=== PATIENT | male | born 1960 | race Caucasian/White ===

== ENCOUNTER 2021-04-07 10:41 | Inpatient (IN) ==
[2021-04-07] MEDS ORDERED: Aspirin 81 MG TAB.CHEW PO ONE (11:23)
[2021-04-07 11:57] LABS: Basophils # 0.1 K/mcL (0.0-0.2); Basophils % 0.7 %; Eosinophils # 0.1 K/mcL (0.0-0.6); Hematocrit 43.5 % (37.5-50.1); Hemoglobin 15.2 g/dL (12.9-16.9); Immature Granulocytes % 0.6 % (0-4); Lymphocytes # 2.2 K/mcL (0.6-4.6); Lymphocytes % 31.4 %; Mean Corpuscular HGB Conc 34.9 g/dL (31.6-35.5); Mean Corpuscular Hemoglobin 32.5 pg (28.0-33.3); Mean Corpuscular Volume 92.9 fL (83.0-100.0); Mean Platelet Volume 10.1 fL (9.4-12.4); Monocytes # 0.6 K/mcL (0.0-1.3); Monocytes % 7.9 %; Neutrophils # 4.2 K/mcL (1.6-8.9); Platelet Count 275 K/mcL (140-400); Red Blood Count 4.68 M/mcL (4.19-5.50); Segmented Neutrophils % 58.4 %; White Blood Count 7.1 K/mcL (4.3-11.1)
[2021-04-07 12:22] LABS: Alanine Aminotransferase 17 Units/L (7-52); Albumin 4.4 g/dL (3.5-5.7); Albumin/Globulin Ratio 1.5 (1.1-2.2); Alkaline Phosphatase 56 Units/L (34-104); Aspartate Amino Transferase 17 Units/L (13-39); BUN/Creatinine Ratio 15 (6-26); Bilirubin,Direct 0.2 mg/dL (0.0-0.2); Bilirubin,Indirect 0.7 mg/dL (0.0-1.0); Bilirubin,Total 0.9 mg/dL (0.3-1.0); Blood Urea Nitrogen 12 mg/dL (8-23); Calcium 9.4 mg/dL (8.6-10.3); Carbon Dioxide 28 mEq/L (23-29); Chloride 104 mEq/L (98-107); Glucose 96 mg/dL (70-105); Osmolality,Calculated 284 (280-300); Potassium 3.8 mEq/L (3.5-5.1); Sodium 137 mEq/L (136-145); Total Protein 7.4 g/dL (6.4-8.9); Troponin I < 0.03 ng/mL (< 0.04); eGFR For African Americans > 60 (> 60); eGFR For Non-African Americans > 60 (> 60)
[2021-04-07] MEDS ORDERED: Naloxone 0.4 MG/ML INJ IVP PRN (14:43)
[2021-04-07] MEDS ORDERED: Perflutren Lipid Microsphere 1.3 ML in 0.9 % Sodium Chloride 8.7 ML IVP PRN (15:40)
[2021-04-07 16:18] LABS: Cholesterol 227 mg/dL (< 200); HDL Cholesterol 38 mg/dL (40-59); LDL Cholesterol,Calculated 159 mg/dL (< 100); Triglycerides 148 mg/dL (< 150)
[2021-04-07 16:50] LABS: Estimated Average Glucose 103 mg/dl; Hemoglobin A1C 5.2 %
[2021-04-07] MEDS ORDERED: Isovue-370 500 ML BOTTLE IVP ONE (19:47)
[2021-04-08 03:04] LABS: INR 1.1; Prothrombin Time 11.8 Seconds (9.4-12.1)
[2021-04-08] MEDS ORDERED: *HR* Enoxaparin 40 MG/0.4 ML SYRINGE SQ SCH (06:00)
[2021-04-08] MEDS: Aspirin 81 MG TAB.CHEW PO SCH (08:20)
[2021-04-08] MEDS ORDERED: *HR* Heparin 5,000 UNIT/ML VIAL IVP PRN ×2 (09:15)
[2021-04-08 09:48] LABS: Hematocrit 43.5 % (37.5-50.1); Hemoglobin 15.5 g/dL (12.9-16.9); Mean Corpuscular HGB Conc 35.6 g/dL (31.6-35.5); Mean Corpuscular Hemoglobin 32.4 pg (28.0-33.3); Mean Platelet Volume 10.2 fL (9.4-12.4); Platelet Count 289 K/mcL (140-400); Red Blood Count 4.78 M/mcL (4.19-5.50); White Blood Count 7.2 K/mcL (4.3-11.1)
[2021-04-08 09:55] LABS: Heparin anti-factor XA UFH 0.3 IU/mL (0.30-0.70)
[2021-04-08 09:56] LABS: Prothrombin Time 11.4 Seconds (9.4-12.1)
[2021-04-08] MEDS: Heparin 25,000UNIT/250ML 1/2NS 25,000 UNIT/250 ML IV.SOLN IVC SCH (10:50)
[2021-04-08] MEDS ORDERED: *HR* Rivaroxaban 10 MG TABLET PO SCH (17:00)
[2021-04-08] MEDS ORDERED: *HR* Acetaminophen w/Cod 300-30 mg 1 TAB TABLET PO PRN (19:08)
[2021-04-09] MEDS: Aspirin 81 MG TAB.CHEW PO SCH (08:22)
[2021-04-09 10:36] VITALS: O2SAT 95
[2021-04-09] MEDS: Heparin 25,000UNIT/250ML 1/2NS 25,000 UNIT/250 ML IV.SOLN IVC SCH (12:30)
[2021-04-09 15:27] VITALS: BP 113/79; PULSE 65; TEMP 97.5
== END 2021-04-09 18:10 | disposition home or self-care (01) | DRG 45 ==
LOC: 3BNU 10:41 → EMEROOARM 10:41 → SUATTDRO 17:56 → 3BNU 18:40
PROVIDERS: ADMIT Family Medicine; ATTEND Internal Medicine

== ENCOUNTER 2021-04-17 10:56 | Inpatient (IN) ==
[2021-04-17] MEDS ORDERED: CeFAZolin Syr 2,000MG/20 ML 2,000 MG/20 ML SYRINGE IVPB ONE (11:30)
[2021-04-17] MEDS ORDERED: Vancomycin 1,250 MG/262.5 ML IV.SOLN IVPB ONE (11:30)
[2021-04-17] MEDS ORDERED: Ringers Solution, Lactated 1,000 ML IVC SCH (11:30)
[2021-04-17] MEDS ORDERED: *HR* OxyCODONE Immed Rel 5 MG TABLET PO PRN ×2 (11:54→23:03)
[2021-04-17] MEDS ORDERED: Famotidine 20 MG/2 ML VIAL IVP ONE (11:54)
[2021-04-17] MEDS ORDERED: Acetaminophen IV 1,000 MG/100 ML BAG IVPB ONE (11:54)
[2021-04-17] MEDS ORDERED: Ondansetron 4 MG/2 ML VIAL IVP PRN ×2 (11:54→23:03)
[2021-04-17] MEDS ORDERED: Albuterol 2.5 MG/3 ML NEBULIZER IH PRN (11:54)
[2021-04-17] MEDS ORDERED: *HR* FentaNYL (PF) 100 MCG/2 ML VIAL ONE (11:57)
[2021-04-17] MEDS ORDERED: Lidocaine -MPF 2% 5 ML VIAL ONE ×2 (11:57→12:26)
[2021-04-17] MEDS ORDERED: Ondansetron 4 MG/2 ML VIAL ONE ×2 (11:57→12:00)
[2021-04-17] MEDS ORDERED: *HR* Propofol 200 MG/20 ML VIAL IVP ONE (11:57)
[2021-04-17] MEDS ORDERED: *HR* Rocuronium Bromide 50 MG/5 ML VIAL ONE (11:57)
[2021-04-17] MEDS ORDERED: *HR* Succinylcholine 200 MG/10 ML VIAL IVP ONE (11:57)
[2021-04-17] MEDS ORDERED: Lidocaine HCL 4 ML Topical Solution (Laryng-O-Jet Kit Sterile Pak) TP ONE (11:57)
[2021-04-17] MEDS ORDERED: *HR* Midazolam HCl 2 MG/2 ML VIAL ONE (11:57)
[2021-04-17] MEDS ORDERED: *HR* Remifentanil 2 MG VIAL IVP ONE (12:02)
[2021-04-17] MEDS ORDERED: Vancomycin 1,000 MG, Sodium Chloride IRRigation 1,000 ML IR ONE (12:45)
[2021-04-17] MEDS ORDERED: *HR* Heparin 5,000 UNIT/ML VIAL ONE (13:27)
[2021-04-17] MEDS ORDERED: EPHEDrine 50 MG/ML VIAL ONE (13:33)
[2021-04-17] MEDS ORDERED: Sugammadex Sodium 200 MG/2 ML VIAL IV ONE (14:33)
[2021-04-17] MEDS ORDERED: Heparin 1,000 UNITS/500 mL 1,000 ML ONE (15:17)
[2021-04-17] MEDS ORDERED: Bupivacaine-MPF 0.25% 10 ML VIAL ONE (15:17)
[2021-04-17] MEDS: *HR* FentaNYL (PF) 100 MCG/2 ML VIAL IVP PRN ×2 (15:57→19:37)
[2021-04-17] MEDS ORDERED: CeFAZolin 2,000 MG/120 ML BAG IVPB ONE (20:21)
[2021-04-17] MEDS ORDERED: 0.9 % Sodium Chloride 1,000 ML IVC SCH (23:03)
[2021-04-17] MEDS ORDERED: Acetaminophen 325 MG TABLET PO PRN (23:03)
[2021-04-17] MEDS ORDERED: Naloxone 0.4 MG/ML INJ IVP PRN (23:03)
[2021-04-17] MEDS ORDERED: *HR* HYDROcodone/Acet 5/325 mg TABLET PO PRN (23:03)
[2021-04-17] MEDS ORDERED: *HR* Labetalol 20 MG/4 ML SYRINGE IVP PRN (23:03)
[2021-04-17] MEDS: *HR* Metoprolol 5 MG/5 ML VIAL IVP SCH (23:43)
[2021-04-18] MEDS ORDERED: Vancomycin 1,250 MG/262.5 ML IV.SOLN IVPB ONE (01:00)
[2021-04-18] MEDS ORDERED: CeFAZolin 2 GM/120 ML BAG IVPB SCH (03:00)
[2021-04-18] MEDS: *HR* Metoprolol 5 MG/5 ML VIAL IVP SCH (04:43)
[2021-04-18] MEDS ORDERED: *HR* Heparin 5,000 UNIT/ML VIAL SQ SCH (06:00)
[2021-04-18] MEDS ORDERED: Aspirin Enteric Coated 81 MG Tablet PO SCH (09:00)
[2021-04-18 14:24] VITALS: BP 118/69; PULSE 75; TEMP 97.5; O2SAT 97
== END 2021-04-18 15:00 | disposition home or self-care (01) | DRG 24 ==
LOC: SAMDAY 10:56 → 2NNU 22:00
PROVIDERS: ADMIT Surgery; ATTEND Surgery